=== PATIENT | male | born 1935 | race Caucasian/White ===

== ENCOUNTER 2016-05-20 14:09 | Inpatient (IN) | payer OTHER, MEDICARE ==
[~2016-05-20] VITALS: Ht 170.2 cm; Wt 84.9 kg
[2016-05-20 14:12] VITALS: BP 159/76; PULSE 85; RESP 18; TEMP 98.6; O2SAT 83
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
[2016-05-20 15:00] VITALS: BP 146/65; PULSE 82; RESP 17; O2SAT 99
[2016-05-20] MEDS ORDERED: BYST5TAB2 PO (15:15)
[2016-05-20] MEDS ORDERED: GLIP5TAB8 PO (15:15)
[2016-05-20] MEDS ORDERED: CLON0.2T PO (15:15)
[2016-05-20] MEDS ORDERED: ATOR40TA16 PO (15:15)
[2016-05-20] MEDS ORDERED: LANTINJ SQ (15:15)
[2016-05-20] MEDS ORDERED: PLAV75TA29 PO (15:15)
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
[2016-05-20] MEDS ORDERED: SODIUM CHLORIDE 0.9% FLUSH 5 ML FLUSH IVF PRN (15:45)
[2016-05-20] MEDS ORDERED: NALOXONE HCL 0.4 MG/ML AMP IV PRN (15:45)
[2016-05-20] MEDS ORDERED: Post-op Orders (for Pharmacy) MISC XX ONE (15:45)
[2016-05-20] MEDS ORDERED: ONDANSETRON HCL 4 MG/2 ML VIAL IV PRN (15:45)
[2016-05-20 16:00] VITALS: BP 145/65; PULSE 78; RESP 16; O2SAT 99
[2016-05-20 17:00] VITALS: BP 154/89; PULSE 88; RESP 16; O2SAT 98
[2016-05-20] MEDS ORDERED: glipiZIDE 5 MG TAB PO SCH (17:00)
[2016-05-20] MEDS ORDERED: NEBIVOLOL 10 MG TAB PO SCH (17:00)
[2016-05-20] MEDS: PANTOPRAZOLE SOD 40 MG DELAYED RELEASE TAB PO SCH (17:07)
[2016-05-20] MEDS: SODIUM CHLOR 0.9% 1000 ML INJ 1,000 ML IV SCH ×2 (17:07→21:19)
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
[2016-05-20] MEDS ORDERED: ENOXAPARIN SODIUM 40 MG/0.4 ML SYRINGE SQ ONE (18:30)
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
[2016-05-20] MEDS: INSULIN DETEMIR 100 UNITS/ML VIAL SQ SCH (19:36)
[2016-05-20 20:49] VITALS: BP 119/57; PULSE 85; RESP 18; TEMP 98.7; O2SAT 96
[2016-05-20] MEDS: cloNIDine HCL 0.2 MG TAB PO SCH (21:00)
[2016-05-20] MEDS ORDERED: cloNIDine HCL 0.2 MG TAB PO SCH (21:00)
[2016-05-20] MEDS: oxyCODONE/ACETAMINOPHEN 5 MG/325 MG TAB PO PRN (21:17)
[2016-05-20] MEDS: glipiZIDE 5 MG TAB PO SCH (21:17)
[2016-05-20] MEDS: DOCUSATE SODIUM 100 MG CAP PO SCH (21:17)
[2016-05-20] MEDS: ATORVASTATIN 40 MG TAB PO SCH (21:18)
[2016-05-20] MEDS: SODIUM CHLORIDE 0.9% FLUSH 5 ML FLUSH IVF SCH (21:18)
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
[2016-05-21] VITALS (10 sets, daily range): BP systolic 108–159; BP diastolic 53–69; PULSE 62–74; RESP 16–20; TEMP 96.2–99.8; O2SAT 92–95
[2016-05-21] MEDS: oxyCODONE/ACETAMINOPHEN 5 MG/325 MG TAB PO PRN (04:24)
[2016-05-21] MEDS ORDERED: POLYETHYLENE GLYCOL 17 GM PKG PO PRN (05:45)
[2016-05-21 06:03] LABS: HEMATOCRIT 22.4 % (39.0-51.0); MEAN CELL VOLUME 75.5 FL (80.0-100.0); MEAN CORPUSCULAR HEMOGLOBIN 24.7 PG (27.0-34.0); MEAN CORPUSCULAR HGB CONC 32.7 % (32.0-36.0); PLATELET COUNT 115 TH/MM3 (150-450); RED BLOOD COUNT 2.97 MIL/MM3 (4.50-5.90); RED CELL DISTRIBUTION WIDTH 15.9 % (11.6-17.2); WHITE BLOOD COUNT 6.5 TH/MM3 (4.0-11.0)
[2016-05-21 06:10] LABS: REVIEW FLAG FINAL
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
[2016-05-21 06:27] LABS: BICARBONATE 23.7 MEQ/L (21.0-32.0); POTASSIUM 4.5 MEQ/L (3.5-5.1)
[2016-05-21] MEDS: METHOCARBAMOL 500 MG TAB PO SCH ×3 (06:31→20:23)
[2016-05-21] MEDS ORDERED: RESP: ALBUTEROL 2.5 MG/IPRATROPIUM 0.5 MG NEB (PRN) NEB (07:45)
[2016-05-21] MEDS ORDERED: DEXTROSE 50% IN WATER 50 ML VIAL(D50) IV PUSH PRN (08:00)
[2016-05-21] MEDS ORDERED: GLUCAGON 1 MG/ML VIAL OTHER PRN (08:00)
[2016-05-21] MEDS: DOCUSATE SODIUM 100 MG CAP PO SCH ×2 (08:59→20:22)
[2016-05-21] MEDS: cloNIDine HCL 0.2 MG TAB PO SCH ×2 (08:59→20:23)
[2016-05-21] MEDS: NEBIVOLOL 5 MG TAB PO SCH (09:00)
[2016-05-21] MEDS ORDERED: oxyCODONE HCL 10 MG CONTROLLED RELEASE TAB PO SCH (09:00)
[2016-05-21] MEDS: glipiZIDE 5 MG TAB PO SCH ×2 (09:00→20:22)
[2016-05-21] MEDS ORDERED: ATORVASTATIN 40 MG TAB PO SCH (09:00)
[2016-05-21] MEDS: SODIUM CHLORIDE 0.9% FLUSH 5 ML FLUSH IVF SCH ×2 (09:01→20:23)
[2016-05-21] MEDS: CHOLECALCIFEROL (VIT D3) 400 UNIT TAB PO SCH (09:06)
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
[2016-05-21] MEDS ORDERED: BISACODYL 10 MG SUPP RECTAL PRN (11:45)
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
[2016-05-21 12:57] LABS: HEMATOCRIT 21.8 % (39.0-51.0)
[2016-05-21] MEDS: MORPHINE SULFATE 15 MG CONTROLLED RELEASE TAB PO SCH ×2 (13:47→20:22)
[2016-05-21] MEDS: MORPHINE SULFATE 4 MG/ML INJ IV PRN (13:49)
[2016-05-21] MEDS ORDERED: SODIUM CHLOR 0.9% 250 ML INJ 250 ML IV ONE (14:00)
[2016-05-21] MEDS: INSULIN NovoLIN REGULAR SUPPLEMENTAL SCALE SQ SCH ×3 (14:02→20:23)
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
[2016-05-21 16:29] LABS: REVIEW FLAG FINAL
[2016-05-21] MEDS: PANTOPRAZOLE SOD 40 MG DELAYED RELEASE TAB PO SCH (16:45)
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
[2016-05-21] MEDS: SENNOSIDES 8.6 MG TAB PO SCH (20:21)
[2016-05-21] MEDS: ATORVASTATIN 40 MG TAB PO SCH (20:22)
[2016-05-21] MEDS: INSULIN DETEMIR 100 UNITS/ML VIAL SQ SCH (20:23)
[2016-05-22] VITALS: BP 150/78; PULSE 70; RESP 20; TEMP 98.2; O2SAT 94
[2016-05-22 04:00] VITALS: BP 175/69; PULSE 68; RESP 22; TEMP 97.4; O2SAT 94
[2016-05-22 06:17] LABS: HEMATOCRIT 25.2 % (39.0-51.0); MEAN CELL VOLUME 76.1 FL (80.0-100.0); MEAN CORPUSCULAR HGB CONC 32.9 % (32.0-36.0); PLATELET COUNT 113 TH/MM3 (150-450); RED BLOOD COUNT 3.31 MIL/MM3 (4.50-5.90); RED CELL DISTRIBUTION WIDTH 16.5 % (11.6-17.2); REVIEW FLAG FINAL; WHITE BLOOD COUNT 5.7 TH/MM3 (4.0-11.0)
[2016-05-22 06:23] LABS: BICARBONATE 28.6 MEQ/L (21.0-32.0); POTASSIUM 4.5 MEQ/L (3.5-5.1)
[2016-05-22] MEDS: METHOCARBAMOL 500 MG TAB PO SCH ×3 (06:24→22:15)
[2016-05-22] MEDS: MORPHINE SULFATE 15 MG CONTROLLED RELEASE TAB PO SCH ×3 (06:24→22:16)
[2016-05-22] MEDS: INSULIN NovoLIN REGULAR SUPPLEMENTAL SCALE SQ SCH ×5 (06:24→22:46)
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
[2016-05-22 08:06] VITALS: BP 160/69; PULSE 67; RESP 18; TEMP 98.7; O2SAT 94
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
[2016-05-22] MEDS: cloNIDine HCL 0.2 MG TAB PO SCH ×2 (09:30→22:14)
[2016-05-22] MEDS: DOCUSATE SODIUM 100 MG CAP PO SCH ×2 (09:30→22:15)
[2016-05-22] MEDS: glipiZIDE 5 MG TAB PO SCH ×2 (09:30→22:16)
[2016-05-22] MEDS: NEBIVOLOL 5 MG TAB PO SCH (09:30)
[2016-05-22] MEDS: CHOLECALCIFEROL (VIT D3) 400 UNIT TAB PO SCH (09:30)
[2016-05-22] MEDS: SODIUM CHLORIDE 0.9% FLUSH 5 ML FLUSH IVF SCH ×2 (09:31→22:16)
[2016-05-22 11:30] VITALS: BP 155/61; PULSE 71; RESP 17; TEMP 96.8; O2SAT 93
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
[2016-05-22] MEDS: MORPHINE SULFATE 4 MG/ML INJ IV PRN (13:22)
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
[2016-05-22 16:00] VITALS: BP 165/67; PULSE 68; RESP 18; TEMP 97.1; O2SAT 91
--- NOTE | 2016-05-22 17:36 | EC ---
Study Study Date:05/22/2016 STUDY CONCLUSIONS SUMMARY - Left ventricle: The cavity size was normal. Systolic function was normal. The estimated ejection fraction was in the range of 55% to 60%. - Aortic valve: Valve area: 1.83cm^2(VTI). Valve area: 1.74cm^2 (Vmax). - Mitral valve: Mildly calcified annulus. - Pulmonary arteries: PA peak pressure: 53mm Hg (S). - Pericardium, extracardiac: There was no pericardial effusion. If LV function is below 40, please consider prescribing an ACEI or ARB or document rationale for non-use. PROCEDURE DATA STUDY STATUS: Elective. Procedure: Transthoracic echocardiography. Image quality was good. Scanning was performed from the parasternal, apical, and subcostal acoustic windows. Study completion: The patient tolerated the procedure well. Transthoracic echocardiography. M-mode, complete 2D, complete spectral Doppler, and color Doppler. Height: Height: 67in. Weight: Weight: 175.6lb. Body mass index: BMI: 27.6kg/m^2. Body surface area: BSA: 1.92m^2. Patient status: Inpatient. CARDIAC ANATOMY LEFT VENTRICLE: The cavity size was normal. Systolic function was normal. The estimated ejection fraction was in the range of 55% to 60%. AORTIC VALVE: The valve appears to be grossly normal. Doppler: There was no stenosis. No significant regurgitation. Valve area: 1.83cm^2(VTI). Indexed valve area: 0.95cm^2/m^2 (VTI). Valve area: 1.74cm^2 (Vmax). Indexed valve area: 0.91cm^2/m^2 (Vmax). Mean gradient: 9mm Hg (S). Peak gradient: 16mm Hg (S). MITRAL VALVE: Mildly calcified annulus. Doppler: There was no evidence for stenosis. Trace regurgitation. Peak gradient: 6mm Hg (D). LEFT ATRIUM: The atrium was normal in size. RIGHT VENTRICLE: The cavity size was normal. Systolic function was normal. PULMONIC VALVE: Not well visualized. TRICUSPID VALVE: The valve appears to be grossly normal. Doppler: There was no evidence for stenosis. Trace regurgitation. PERICARDIUM: There was no pericardial effusion. Patient weight: 175.6lb _Ejection fraction:_ 65-75% _Fractional shortening:_ 32% up to 5Kg 5-11.5Kg 11.6-22.9Kg 23-45Kg 45-57Kg Aortic Root 7-13 <17 13-22 17-27 17-27 LA diam 6-13 <23 24-38 33-47 37-40 RVID 10-17 7-15 7-15 7-18 8-17 LVIDd 12-22 <32 24-38 33-47 37-40 LVPW 2-4 3-6 5-7 6-8 7-8 IVS 2-4 3-6 5-7 6-8 7-8 BASIC MEASUREMENTS ADULT NORMAL Left ventricle LV internal dimension, ED, chordal 48.3 mm 43-52 level, PLAX LV internal dimension, ES, chordal 34.5 mm 23-38 level, PLAX Fractional shortening, chordal level, *29 % >29 PLAX LV posterior wall thickness, ED 10.7 mm IVS/LVPW ratio, ED 1 <1.3 Ventricular septum Septal thickness, ED 10.7 mm Aortic valve Leaflet separation 19 mm 15-26 Aorta Root diameter, ED 33 mm Left atrium Anterior-posterior dimension 32 mm Anterior-posterior dimension index 1.67 cm/m^2 <2.2 BASIC MEASUREMENTS ADULT NORMAL Aortic valve Leaflet separation 19 mm 15-26 DOPPLER MEASUREMENTS ADULT NORMAL Main pulmonary artery Pressure, S *53 mm Hg =30 Aortic valve Peak velocity, S 199 cm/s Mean velocity, S 138 cm/s VTI, S 41.2 cm Mean gradient, S 9 mm Hg Peak gradient, S 16 mm Hg Valve area, VTI 1.83 cm^2 Valve area index, VTI 0.95 cm^2/m^2 Valve area, Vmax 1.74 cm^2 Valve area index, Vmax 0.91 cm^2/m^2 Mitral valve Peak E-wave velocity 120 cm/s Peak A-wave velocity 139 cm/s Deceleration time 204 ms 150-230 Peak gradient, D 6 mm Hg Peak E/A ratio 0.9 Tricuspid valve Regurgitant peak velocity 358 cm/s Peak RV-RA gradient, S 51 mm Hg Maximal regurgitant velocity 358 cm/s Systemic veins Estimated CVP 5 mm Hg Right ventricle RV pressure, S *56 mm Hg <30 Pulmonic valve Peak velocity, S 82 cm/s LEGEND: Mean values are shown as u=mean value. Asterisk (*) neumann values outside specified normal range. Prepared and signed by Michael Zuluaga [id number]
[2016-05-22] MEDS: LIDOCAINE HCL 5% PATCH TD SCH (17:38)
[2016-05-22] MEDS: PANTOPRAZOLE SOD 40 MG DELAYED RELEASE TAB PO SCH (17:38)
[2016-05-22 19:00] VITALS: BP 179/69; PULSE 72; RESP 17; TEMP 96.9; O2SAT 92
[2016-05-22] MEDS: INSULIN DETEMIR 100 UNITS/ML VIAL SQ SCH ×2 (21:00→22:47)
[2016-05-22] MEDS: REMOVE OLD LIDOCAINE PATCH TD SCH (21:00)
[2016-05-22] MEDS: ATORVASTATIN 40 MG TAB PO SCH (22:14)
[2016-05-22] MEDS: SENNOSIDES 8.6 MG TAB PO SCH (22:14)
[2016-05-22] MEDS: oxyCODONE/ACETAMINOPHEN 5 MG/325 MG TAB PO PRN (23:30)
[2016-05-23] VITALS (7 sets, daily range): BP systolic 140–178; BP diastolic 62–83; PULSE 55–79; RESP 16–20; TEMP 96.7–98.1; O2SAT 93–97
[2016-05-23 07:04] LABS: HEMATOCRIT 25.5 % (39.0-51.0); MEAN CORPUSCULAR HEMOGLOBIN 24.9 PG (27.0-34.0); MEAN CORPUSCULAR HGB CONC 32.3 % (32.0-36.0); PLATELET COUNT 110 TH/MM3 (150-450); RED BLOOD COUNT 3.31 MIL/MM3 (4.50-5.90); RED CELL DISTRIBUTION WIDTH 16.2 % (11.6-17.2); WHITE BLOOD COUNT 4.9 TH/MM3 (4.0-11.0)
[2016-05-23 07:07] LABS: BICARBONATE 23.9 MEQ/L (21.0-32.0); POTASSIUM 4.5 MEQ/L (3.5-5.1)
[2016-05-23 07:14] LABS: REVIEW FLAG FINAL
[2016-05-23] MEDS: METHOCARBAMOL 500 MG TAB PO SCH ×3 (07:39→21:36)
[2016-05-23] MEDS: MORPHINE SULFATE 15 MG CONTROLLED RELEASE TAB PO SCH ×3 (07:40→21:37)
[2016-05-23] MEDS: INSULIN NovoLIN REGULAR SUPPLEMENTAL SCALE SQ SCH ×5 (07:53→21:00)
[2016-05-23] MEDS ORDERED: LACTULOSE SYRUP 20 GM/30 ML CUP PO ONE (08:30)
[2016-05-23] MEDS: SODIUM CHLORIDE 0.9% FLUSH 5 ML FLUSH IVF SCH ×2 (09:00→21:00)
[2016-05-23] MEDS: cloNIDine HCL 0.2 MG TAB PO SCH ×2 (09:06→21:32)
[2016-05-23] MEDS: DOCUSATE SODIUM 100 MG CAP PO SCH ×2 (09:06→21:32)
[2016-05-23] MEDS: NEBIVOLOL 5 MG TAB PO SCH (09:06)
[2016-05-23] MEDS: CHOLECALCIFEROL (VIT D3) 400 UNIT TAB PO SCH (09:07)
[2016-05-23] MEDS: glipiZIDE 5 MG TAB PO SCH ×2 (09:07→21:32)
[2016-05-23] MEDS: oxyCODONE/ACETAMINOPHEN 5 MG/325 MG TAB PO PRN ×2 (09:07→17:35)
[2016-05-23] MEDS: LIDOCAINE HCL 5% PATCH TD SCH (09:12)
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
[2016-05-23] MEDS ORDERED: MILKSUS PO (12:44)
[2016-05-23] MEDS ORDERED: DOCU1CAP39 PO (12:44)
[2016-05-23] MEDS ORDERED: SENN8.6T15 PO (12:47)
[2016-05-23] MEDS ORDERED: OXYC1TAB63 PO (13:21)
[2016-05-23] MEDS ORDERED: METH500T3 PO (13:22)
[2016-05-23] MEDS ORDERED: OXYGENTANK NAS.CANULA (17:14)
[2016-05-23] MEDS: PANTOPRAZOLE SOD 40 MG DELAYED RELEASE TAB PO SCH (17:35)
[2016-05-23] MEDS: REMOVE OLD LIDOCAINE PATCH TD SCH (21:00)
[2016-05-23] MEDS: MAGNESIUM HYDROXIDE SUSP 30 ML CUP PO SCH (21:31)
[2016-05-23] MEDS: SENNOSIDES 8.6 MG TAB PO SCH (21:32)
[2016-05-23] MEDS: ATORVASTATIN 40 MG TAB PO SCH (21:32)
[2016-05-23] MEDS: INSULIN DETEMIR 100 UNITS/ML VIAL SQ SCH (21:33)
[2016-05-23] MEDS ORDERED: WALKER WHEELS/F1 MIS (22:23)
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
[2016-05-23] MEDS ORDERED: MISC-163 (22:27)
[2016-05-23] MEDS ORDERED: MISC-289 (22:28)
[2016-05-24] VITALS: BP 175/72; PULSE 86; RESP 17; TEMP 97.2; O2SAT 94
[2016-05-24] MEDS: oxyCODONE/ACETAMINOPHEN 5 MG/325 MG TAB PO PRN ×3 (00:43→15:29)
[2016-05-24] MEDS: METHOCARBAMOL 500 MG TAB PO SCH ×3 (06:29→21:57)
[2016-05-24] MEDS: MORPHINE SULFATE 15 MG CONTROLLED RELEASE TAB PO SCH ×3 (06:29→21:57)
[2016-05-24] MEDS: INSULIN NovoLIN REGULAR SUPPLEMENTAL SCALE SQ SCH ×4 (06:29→21:00)
[2016-05-24] MEDS: CHOLECALCIFEROL (VIT D3) 400 UNIT TAB PO SCH (07:33)
[2016-05-24] MEDS: cloNIDine HCL 0.2 MG TAB PO SCH ×2 (07:33→20:27)
[2016-05-24] MEDS: DOCUSATE SODIUM 100 MG CAP PO SCH ×2 (07:33→20:27)
[2016-05-24] MEDS: NEBIVOLOL 5 MG TAB PO SCH (07:33)
[2016-05-24] MEDS: glipiZIDE 5 MG TAB PO SCH ×2 (07:34→20:27)
[2016-05-24] MEDS: LIDOCAINE HCL 5% PATCH TD SCH (07:38)
[2016-05-24 08:00] VITALS: BP 179/50; PULSE 71; RESP 16; TEMP 97.5; O2SAT 96
[2016-05-24] MEDS ORDERED: BISACODYL 10 MG SUPP RECTAL ONE (08:00)
[2016-05-24] MEDS ORDERED: BISACODYL EC 5 MG TABEC PO ONE (08:00)
[2016-05-24] MEDS: SODIUM CHLORIDE 0.9% FLUSH 5 ML FLUSH IVF SCH ×2 (09:00→20:59)
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
[2016-05-24] MEDS: POLYETHYLENE GLYCOL 17 GM PKG PO SCH (15:28)
[2016-05-24] MEDS: PANTOPRAZOLE SOD 40 MG DELAYED RELEASE TAB PO SCH (15:29)
[2016-05-24] MEDS ORDERED: POLY17S PO (15:35)
[2016-05-24] MEDS ORDERED: PANT40TA3 PO (15:35)
[2016-05-24] MEDS ORDERED: MORP1TAB24 PO (15:35)
[2016-05-24] MEDS ORDERED: LIDO5DIS35 TD (15:35)
[2016-05-24] MEDS ORDERED: BISA10R RECTAL (15:35)
[2016-05-24 16:00] VITALS: BP 165/66; PULSE 66; RESP 16; TEMP 98.5; O2SAT 95
[2016-05-24 18:17] VITALS: O2SAT 96
[2016-05-24 20:00] VITALS: BP 170/80; PULSE 81; RESP 22; TEMP 98.1; O2SAT 97
[2016-05-24] MEDS: ATORVASTATIN 40 MG TAB PO SCH (20:27)
[2016-05-24] MEDS: MAGNESIUM HYDROXIDE SUSP 30 ML CUP PO SCH (20:27)
[2016-05-24] MEDS: SENNOSIDES 8.6 MG TAB PO SCH (20:27)
[2016-05-24] MEDS: REMOVE OLD LIDOCAINE PATCH TD SCH (20:28)
[2016-05-24] MEDS: INSULIN DETEMIR 100 UNITS/ML VIAL SQ SCH (20:59)
--- NOTE | 2016-05-24 21:15 | RADRPT ---
EXAM DATE/TIME: 05/24/2016 20:42 [facility] COMPARISON: CT LUMBAR SPINE W/O CONTRAST, May 20, 2016, 19:10. INDICATIONS : Evaluate lumbar fracture. MEDICAL HISTORY : None. SURGICAL HISTORY : None. ENCOUNTER: Subsequent ACUITY: 4 - 6 days PAIN SCORE: 6/10 LOCATION: Lumbar. FINDINGS: A single lateral projection shows a compression deformity involving the L1 vertebral body. In this si ngle projection there is the suggestion of worsening compression. Remaining vertebral body heights ar e maintained. Calcified plaque throughout the abdominal aorta. Aneurysmal change measuring approximat brenda 3.6 cm within the infrarenal aorta. CONCLUSION: Further compression of the L1 vertebral body. AAA. Shaquille Dos Santos Jr., MD on May 24, 2016 at 21:12 Board Certified Radiologist. This report was verified electronically.
[2016-05-25] VITALS (7 sets, daily range): BP systolic 140–190; BP diastolic 60–83; PULSE 69–77; RESP 16–20; TEMP 96.9–99.1; O2SAT 95–98
[2016-05-25] MEDS: METHOCARBAMOL 500 MG TAB PO SCH ×3 (05:57→21:25)
[2016-05-25] MEDS: MORPHINE SULFATE 15 MG CONTROLLED RELEASE TAB PO SCH ×3 (05:57→21:25)
[2016-05-25] MEDS: INSULIN NovoLIN REGULAR SUPPLEMENTAL SCALE SQ SCH ×4 (07:00→21:24)
[2016-05-25] MEDS: SODIUM CHLORIDE 0.9% FLUSH 5 ML FLUSH IVF SCH ×2 (09:00→21:00)
[2016-05-25] MEDS: CHOLECALCIFEROL (VIT D3) 400 UNIT TAB PO SCH (09:33)
[2016-05-25] MEDS: cloNIDine HCL 0.2 MG TAB PO SCH ×2 (09:33→21:25)
[2016-05-25] MEDS: glipiZIDE 5 MG TAB PO SCH ×2 (09:33→21:25)
[2016-05-25] MEDS: DOCUSATE SODIUM 100 MG CAP PO SCH ×2 (09:33→21:25)
[2016-05-25] MEDS: NEBIVOLOL 5 MG TAB PO SCH (09:33)
[2016-05-25] MEDS: POLYETHYLENE GLYCOL 17 GM PKG PO SCH (09:34)
[2016-05-25] MEDS: LIDOCAINE HCL 5% PATCH TD SCH (09:35)
[2016-05-25] MEDS: oxyCODONE/ACETAMINOPHEN 5 MG/325 MG TAB PO PRN (09:37)
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
[2016-05-25] MEDS ORDERED: MAGNESIUM CITRATE SOLN 300 ML BTL PO ONE (14:45)
[2016-05-25] MEDS: PANTOPRAZOLE SOD 40 MG DELAYED RELEASE TAB PO SCH (16:17)
[2016-05-25] MEDS: REMOVE OLD LIDOCAINE PATCH TD SCH (21:00)
[2016-05-25] MEDS: INSULIN DETEMIR 100 UNITS/ML VIAL SQ SCH (21:24)
[2016-05-25] MEDS: ATORVASTATIN 40 MG TAB PO SCH (21:25)
[2016-05-25] MEDS: SENNOSIDES 8.6 MG TAB PO SCH (21:25)
[2016-05-25] MEDS: MAGNESIUM HYDROXIDE SUSP 30 ML CUP PO SCH (21:25)
[2016-05-26] VITALS (7 sets, daily range): BP systolic 142–176; BP diastolic 66–70; PULSE 59–67; RESP 17–18; TEMP 96.1–98; O2SAT 96–99
[2016-05-26] MEDS: METHOCARBAMOL 500 MG TAB PO SCH ×3 (05:58→22:02)
[2016-05-26] MEDS: MORPHINE SULFATE 15 MG CONTROLLED RELEASE TAB PO SCH ×3 (05:58→22:02)
[2016-05-26] MEDS: INSULIN NovoLIN REGULAR SUPPLEMENTAL SCALE SQ SCH ×4 (05:58→20:49)
[2016-05-26] MEDS: POLYETHYLENE GLYCOL 17 GM PKG PO SCH (09:00)
[2016-05-26] MEDS: SODIUM CHLORIDE 0.9% FLUSH 5 ML FLUSH IVF SCH ×2 (09:00→20:48)
[2016-05-26] MEDS: DOCUSATE SODIUM 100 MG CAP PO SCH ×2 (09:00→20:47)
[2016-05-26] MEDS: cloNIDine HCL 0.2 MG TAB PO SCH ×2 (09:09→20:47)
[2016-05-26] MEDS: NEBIVOLOL 5 MG TAB PO SCH (09:09)
[2016-05-26] MEDS: glipiZIDE 5 MG TAB PO SCH ×2 (09:09→20:47)
[2016-05-26] MEDS: CHOLECALCIFEROL (VIT D3) 400 UNIT TAB PO SCH (09:09)
[2016-05-26] MEDS: LIDOCAINE HCL 5% PATCH TD SCH (09:10)
[2016-05-26] MEDS: oxyCODONE/ACETAMINOPHEN 5 MG/325 MG TAB PO PRN ×2 (09:10→16:15)
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
[2016-05-26] MEDS: PANTOPRAZOLE SOD 40 MG DELAYED RELEASE TAB PO SCH (16:15)
[2016-05-26] MEDS: ATORVASTATIN 40 MG TAB PO SCH (20:47)
[2016-05-26] MEDS: SENNOSIDES 8.6 MG TAB PO SCH (20:47)
[2016-05-26] MEDS: INSULIN DETEMIR 100 UNITS/ML VIAL SQ SCH (20:48)
[2016-05-26] MEDS: MAGNESIUM HYDROXIDE SUSP 30 ML CUP PO SCH (20:48)
[2016-05-26] MEDS: REMOVE OLD LIDOCAINE PATCH TD SCH (20:49)
[2016-05-27 00:35] VITALS: BP 162/70; PULSE 62; RESP 17; TEMP 96.5; O2SAT 98
[2016-05-27] MEDS: MORPHINE SULFATE 15 MG CONTROLLED RELEASE TAB PO SCH ×2 (06:15→15:28)
[2016-05-27] MEDS: INSULIN NovoLIN REGULAR SUPPLEMENTAL SCALE SQ SCH ×2 (06:15→12:21)
[2016-05-27] MEDS: METHOCARBAMOL 500 MG TAB PO SCH ×2 (06:15→15:28)
[2016-05-27 08:00] VITALS: BP 156/68; PULSE 63; RESP 18; TEMP 97.2; O2SAT 97
[2016-05-27] MEDS: cloNIDine HCL 0.2 MG TAB PO SCH (08:23)
[2016-05-27] MEDS: LIDOCAINE HCL 5% PATCH TD SCH (08:23)
[2016-05-27] MEDS: NEBIVOLOL 5 MG TAB PO SCH (08:24)
[2016-05-27] MEDS: DOCUSATE SODIUM 100 MG CAP PO SCH (08:24)
[2016-05-27] MEDS: glipiZIDE 5 MG TAB PO SCH (08:24)
[2016-05-27] MEDS: POLYETHYLENE GLYCOL 17 GM PKG PO SCH (08:24)
[2016-05-27] MEDS: CHOLECALCIFEROL (VIT D3) 400 UNIT TAB PO SCH (08:25)
[2016-05-27] MEDS: SODIUM CHLORIDE 0.9% FLUSH 5 ML FLUSH IVF SCH (08:26)
[2016-05-27 08:31] VITALS: O2SAT 96
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
[2016-05-27 12:00] VITALS: BP 146/62; PULSE 67; RESP 18; TEMP 97.7; O2SAT 98
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
[2016-06-06] MEDS ORDERED: OXYC-392 PO (15:29)
[2016-06-06] MEDS ORDERED: METH500T3 PO (15:29)
[2016-06-06] MEDS ORDERED: OXYC1TAB63 PO (15:29)
[2016-06-06] MEDS ORDERED: CYCL5TAB PO (15:29)
[2016-06-06] MEDS ORDERED: LIDO1PAD52 TOPICAL (15:30)
[2016-06-06] MEDS ORDERED: TRAZ50TA12 PO (15:30)
[2016-07-04] MEDS ORDERED: HYDR-3516 PO (14:47)
== END 2016-05-27 16:00 | disposition home health service (06) | DRG 184 ==
LOC: NEPE 14:09 → NEDA 14:27 → N06A 18:21
PROVIDERS: ADMIT Surgery; ATTEND Surgery
PROC: 30233N1 Transfusion of Nonautologous Red Blood Cells into Peripheral Vein, Percutaneous Approach (ICD-10-PCS; principal; 2016-05-21)
DX: S22.20XA Unspecified fracture of sternum, initial encounter for closed fracture (principal); N17.9 Acute kidney failure, unspecified; S32.011A Stable burst fracture of first lumbar vertebra, initial encounter for closed fracture; S22.43XA Multiple fractures of ribs, bilateral, initial encounter for closed fracture; G62.9 Polyneuropathy, unspecified; N20.0 Calculus of kidney; E11.9 Type 2 diabetes mellitus without complications; I10 Essential (primary) hypertension; E78.5 Hyperlipidemia, unspecified; D64.9 Anemia, unspecified; H54.42 Blindness, left eye, normal vision right eye; I71.4 Abdominal aortic aneurysm, without rupture; H26.9 Unspecified cataract; R09.02 Hypoxemia; V43.52XA Car driver injured in collision with other type car in traffic accident, initial encounter; Y92.414 Local residential or business street as the place of occurrence of the external cause; Z79.84 Long term (current) use of oral hypoglycemic drugs; Z86.73 Personal history of transient ischemic attack (TIA), and cerebral infarction without residual deficits; Z87.891 Personal history of nicotine dependence
CPT/HCPCS: 36430; 71010; 72020; 72131; 72148; 80048; 82948; 85014; 85018; 85027; 86850; 86900; 86901; 86920; 93306; 93880; 94150; 94620; 94667; 94668; J2270; J7030; L0484; P9016